=== PATIENT | male | born 1985 | race African-American/Black ===

== ENCOUNTER 2017-01-30 11:50 | Emergency (ER) | payer OTHER ==
[~2017-01-30] VITALS: Ht 185.4 cm; Wt 77.1 kg
[2017-01-30] MEDS ORDERED: NORCO 5-325 TA1 EACH PO (12:51)
[2017-01-30 13:37] VITALS: BP 148/96
== END 2017-01-30 13:38 | disposition home or self-care (01) ==
LOC: ER 11:50
DX: S39.011A Strain of muscle, fascia and tendon of abdomen, initial encounter (principal); S39.012A Strain of muscle, fascia and tendon of lower back, initial encounter; F17.210 Nicotine dependence, cigarettes, uncomplicated; F12.10 Cannabis abuse, uncomplicated; F10.99 Alcohol use, unspecified with unspecified alcohol-induced disorder; V89.2XXA Person injured in unspecified motor-vehicle accident, traffic, initial encounter; Y93.I9 Activity, other involving external motion; Y92.89 Other specified places as the place of occurrence of the external cause; Y99.8 Other external cause status

== ENCOUNTER 2018-02-07 17:09 | Emergency (ER) | payer OTHER ==
[~2018-02-07] VITALS: Ht 180.3 cm; Wt 77.1 kg
--- NOTE | ~2018-02-07 | EKG ---
[place] [address] [facility] [place] [address] ELECTROCARDIOGRAM REPORT Name: IVETH ARIZA Room #: DEP SOTERO Wong#: [id number] Admission: 02/07/18 Attend Phys: Discharge: 02/07/18 Date of : 81 Report #: [id number] THIS REPORT FOR: //name// [facility] ED Test Date: 2018-02-07 Test Time: 18:20:44 Pat Name: IVETH ARIZA Department: Room: Gender: M Wood Turner: James SHIN : 1985 Requested By: Kory Gaviria Order Number: [id number] MD: Omi House Measurements Intervals Williamson Rate: 65 P: 29 RI: 137 QRS: 78 QRSD: 97 T: 55 QT: 365 QTc: 380 Interpretive Statements Sinus rhythm Probable left ventricular hypertrophy ST elevation suggests early repolarization No previous ECG available for comparison Electronically Signed On 02-08-2018 7:50:27 CDT by Omi House [email or web address] <ELECTRONICALLY SIGNED> By: Omi House MD, [facility] 02/08/18 0750 1820 1820 Omi House MD, FACC /EPI
[~2018-02-07 17:09] MED LIST: NORCO 5-325 TA1 EACH PO
[2018-02-07] MEDS ORDERED: ALEVE220 M1 PO (18:08)
[2018-02-07] MEDS ORDERED: MUCINEX D ER 11 EACH PO (18:08)
[2018-02-07] MEDS ORDERED: THERAFLU SEVER PO (18:08)
[2018-02-07 18:37] LABS: BASOPHILS 0.4 % (0.0-2.0); HEMATOCRIT 45.9 % (42.0-52.0); HEMOGLOBIN 15.6 gm/dL (14.0-18.0); LYMPHOCYTES 14.2 % (24.0-44.0); MCH 31.7 pg (26.0-34.0); MCV 93.2 fL (80.0-100.0); PLATELET COUNT 188 thou/uL (150-400); POLYS 77.4 % (36.0-66.0); RBC 4.93 mil/uL (4.50-6.00); RDW 13.2 % (10.5-14.5); WBC 11.6 thou/uL (4.0-11.0)
[2018-02-07 18:44] LABS: ANION GAP 6 mmol/L (7-16); BUN 11 mg/dL (7-18); CALCIUM 9.1 mg/dL (8.5-10.1); CHLORIDE 102 mmol/L (98-107); CO2 31 mmol/L (21-32); CREATININE 1.2 mg/dL (0.7-1.3); GLUCOSE 88 mg/dL (74-106); SODIUM 139 mmol/L (136-145)
[2018-02-07 18:52] LABS: ALBUMIN 4.1 g/dL (3.4-5.0); SGOT 25 U/L (15-37); SGPT 31 U/L (30-65); TOTAL BILIRUBIN 0.9 mg/dL (<0.1-1.0); TOTAL PROTEIN 8.1 g/dL (6.4-8.2); TROPONIN-I <0.06 ng/mL (<0.06)
[2018-02-07] MEDS ORDERED: MEDROLDOSEPACK PO (19:14)
[2018-02-07 19:28] VITALS: BP 155/98
== END 2018-02-07 19:30 | disposition home or self-care (01) ==
LOC: ER 17:09
PROVIDERS: Physician Assistant
DX: J20.9 Acute bronchitis, unspecified (principal); G43.909 Migraine, unspecified, not intractable, without status migrainosus; F17.210 Nicotine dependence, cigarettes, uncomplicated

== ENCOUNTER 2019-09-21 15:08 | Emergency (ER) | payer OTHER ==
[~2019-09-21] VITALS: Ht 180.3 cm; Wt 75.8 kg
[~2019-09-21 15:08] MED LIST changes: +ALEVE220 M1 PO; +MEDROLDOSEPACK PO; +MUCINEX D ER 11 EACH PO; +THERAFLU SEVER PO
[2019-09-21 18:07] LABS: CSF CLARITY CLEAR; CSF COLOR COLORLESS; VOLUME 6 ml
[2019-09-21 18:09] LABS: CSF WBC 0 /mm3 (0-10)
[2019-09-21 18:10] LABS: CSF RBC 8 /mm3
[2019-09-21 18:13] LABS: CSF GLUCOSE 69 mg/dL (40-70)
[2019-09-21 18:34] LABS: ABSOLUTE NEUTROPHILS 3.1 thou/uL (1.4-8.2); BASOPHILS 0.3 % (0.0-2.0); EOSINOPHILS 0.6 % (0.0-3.0); HEMATOCRIT 45.4 % (42.0-52.0); HEMOGLOBIN 14.8 gm/dL (14.0-18.0); LYMPHOCYTES 42.7 % (24.0-44.0); MCH 31.3 pg (26.0-34.0); MCHC 32.5 g/dL (28.0-37.0); MCV 96.1 fL (80.0-100.0); MONOCYTES 7.2 % (1.0-8.0); PLATELET COUNT 193 thou/uL (150-400); POLYS 49.2 % (36.0-66.0); RBC 4.72 mil/uL (4.50-6.00); RDW 13.4 % (10.5-14.5); WBC 6.4 thou/uL (4.0-11.0)
[2019-09-21] MEDS ORDERED: LISINOPRIL10 MG PO (18:34)
[2019-09-21 18:53] VITALS: BP 163/107
[2019-09-23 04:07] LABS: SYPHILIS AB Reactive (Non Reactive)
[2019-09-26 16:07] LABS: CSF VDRL Non Reactive (Non Rea:<1:1)
== END 2019-09-21 19:17 | disposition home or self-care (01) ==
LOC: ER 15:08
PROVIDERS: Physician Assistant
DX: Z20.2 Contact with and (suspected) exposure to infections with a predominantly sexual mode of transmission (principal); R51 Headache; I10 Essential (primary) hypertension; F17.210 Nicotine dependence, cigarettes, uncomplicated

== ENCOUNTER 2019-11-16 13:41 | Emergency (ER) | payer OTHER ==
[~2019-11-16] VITALS: Ht 180.3 cm; Wt 74.8 kg
[~2019-11-16 13:41] MED LIST changes: +LISINOPRIL10 MG PO
[2019-11-16 14:34] LABS: ABSOLUTE NEUTROPHILS 10.6 thou/uL (1.4-8.2); BASOPHILS 0.7 % (0.0-2.0); HEMATOCRIT 51.3 % (42.0-52.0); HEMOGLOBIN 16.8 gm/dL (14.0-18.0); LYMPHOCYTES 21.7 % (24.0-44.0); MCH 31.3 pg (26.0-34.0); MCHC 32.7 g/dL (28.0-37.0); MCV 95.7 fL (80.0-100.0); MONOCYTES 3.8 % (1.0-8.0); PLATELET COUNT 242 thou/uL (150-400); POLYS 73.8 % (36.0-66.0); RBC 5.36 mil/uL (4.50-6.00); RDW 13.3 % (10.5-14.5); WBC 14.4 thou/uL (4.0-11.0)
[2019-11-16 14:41] LABS: CALCIUM 10.1 mg/dL (8.5-10.1); CREATININE 1.2 mg/dL (0.7-1.3); POTASSIUM 3.4 mmol/L (3.5-5.1)
[2019-11-16 14:47] LABS: ALBUMIN 5.2 g/dL (3.4-5.0); DIRECT BILIRUBIN 0.2 mg/dL (<0.1-0.2); TOTAL BILIRUBIN 0.8 mg/dL (<0.1-1.0); TOTAL PROTEIN 9.4 g/dL (6.4-8.2)
[2019-11-16] MEDS ORDERED: ZOFRAN ODT4 MG PO (18:36)
[2019-11-16 18:39] VITALS: BP 132/76
== END 2019-11-16 18:39 | disposition home or self-care (01) ==
LOC: ER 13:41
PROVIDERS: Emergency Medicine
DX: R11.2 Nausea with vomiting, unspecified (principal); R19.7 Diarrhea, unspecified; R10.13 Epigastric pain; I10 Essential (primary) hypertension; F17.210 Nicotine dependence, cigarettes, uncomplicated; Z79.899 Other long term (current) drug therapy

== ENCOUNTER 2020-02-20 19:21 | Emergency (ER) | payer OTHER ==
[~2020-02-20] VITALS: Ht 180.3 cm; Wt 77.1 kg
[~2020-02-20 19:21] MED LIST changes: +ZOFRAN ODT4 MG PO
[2020-02-20 19:24] VITALS: BP 144/89
== END 2020-02-20 20:45 | disposition home or self-care (01) ==
LOC: ER 19:21
DX: S63.91XA Sprain of unspecified part of right wrist and hand, initial encounter (principal); I10 Essential (primary) hypertension; F17.210 Nicotine dependence, cigarettes, uncomplicated; Z79.899 Other long term (current) drug therapy; W10.8XXA Fall (on) (from) other stairs and steps, initial encounter; Y93.89 Activity, other specified; Y92.89 Other specified places as the place of occurrence of the external cause; Y99.8 Other external cause status